=== PATIENT | female | born 1960 | race Caucasian/White ===

== ENCOUNTER → 2020-11-03 09:10 | Outpatient (BNVA) | payer MEDICARE, MEDICAID, SELFPAY | PROVIDERS: PCP Internal Medicine; Visit Provider Hospitalist | DX: J41.0 Simple chronic bronchitis (principal); R91.8 Other nonspecific abnormal finding of lung field | CPT/HCPCS: 99202 ==

== ENCOUNTER 2020-11-28 09:48 | Outpatient (REF) | payer MEDICARE, MEDICAID, SELFPAY ==
--- NOTE | ~2020-11-28 | CT_ITS ---
EXAMINATION: CT CHEST WITHOUT CONTRAST CLINICAL INFORMATION: Simple chronic bronchitis. COMPARISON: Chest radiograph done on 07/03/2014. TECHNIQUE: Multidetector volumetric CT imaging of the chest was done. Axial MIP volume rendering provided. Sagittal and coronal reformatted images were obtained. This CT examination was performed using dose optimization techniques as appropriate, variously including the following: *Automated exposure control *Adjustment of mA and/or kV according to patient size (this includes techniques or standardized protocols for targeted exams where dose is matched to indication/reason for exam; i.e. extremities or head) *Use of iterative reconstruction technique DLP: 89.5 mGy-cm FINDINGS: SPIRAL TUBE WINDER: Unremarkable. LUNGS: Peripheral/subpleural peribronchiolar nodular airspace disease is noted at the anterior inferior aspect of the anterior segment of right upper lobe of the lung abutting the right minor fissure (65:6), consistent with pneumonia. There is a sub-5 mm noncalcified nodule identified within the right lower lobe posterolaterally (413:7). An additional smaller 1 to 2 mm noncalcified nodule is also noted adjacent to the sub-5 mm nodules also within the right lower lobe (412:7). Tiny 2 to 3 mm noncalcified nodule is noted at left lower lobe (366:7). Linear pleural parenchymal airspace disease is noted along the anterior inferior outer aspect of the right middle lobe (401:7), most consistent with pleuroparenchymal scar or atelectasis. The tracheobronchial tree is patent. Presumed pleural parenchymal scar related changes are noted at both lung apices. MEDIASTINUM: The mediastinum is normal. PLEURA: There is no pleural effusion. No pleural mass or thickening. AXILLA: No lymphadenopathy. CHEST WALL: Bilateral breast implants are present, appear intact. UPPER ABDOMEN: Remarkable for circumscribed hypodense lesion seen along the subdiaphragmatic surface of the left lobe measures approximately 2.0 cm at its maximum dimension with Hounsfield value of, consistent with simple-appearing cyst (46:3). OSSEOUS STRUCTURES: Unremarkable. CT/CT chest wo con IMPRESSION: 1. Abnormal study. Peribronchiolar nodular airspace opacity is noted along the subpleural, peripheral aspect of the anterior inferior part of the anterior segment of right upper lobar lung abutting the right minor fissure, consistent with pneumonia. Additional scattered multiple sub-5 mm indeterminate noncalcified lung nodules are also noted bilaterally. 2. No CT evidence of any pathologically enlarged mediastinal or hilar lymphadenopathy or pleural effusion or adrenal mass. 3. 2 cm cyst involving the left lobe of the liver. The current study was read without the benefit of direct visual comparison with prior studies. Subtle findings can only be apparent when comparison is made with prior studies. If prior studies (CT of the chest) become available, following comparison, an addendum will be dictated.
== END 2020-11-28 09:49 | disposition home or self-care (01) ==
LOC: HO.CT 09:48
PROVIDERS: PCP Internal Medicine; Visit Provider Hospitalist
DX: J41.0 Simple chronic bronchitis (principal); R91.8 Other nonspecific abnormal finding of lung field
CPT/HCPCS: 71250

== ENCOUNTER 2020-12-02 12:54 | Outpatient (REF) | payer MEDICARE, MEDICAID, SELFPAY ==
--- NOTE | 2020-12-02 17:29 | PFT_ITS ---
FLOWS: FEV1 90% predicted at 2.27 L. FVC 78% of predicted at 2.55 L. FEV1 to FVC ratio of 0.89. No bronchodilator response except in small to medium airways. LUNG VOLUMES: Total lung capacity 84% of predicted at 4.16 L. Residual volume 88% of predicted at 1.30 L. Slow vital capacity 85% of predicted at 2.56 L. Expiratory reserve volume 95% of predicted at 0.82 L. Diffusion capacity is normal. IMPRESSION: No obstructive or restrictive ventilatory defect. No bronchodilator response except in small to medium airways. Alfredo Gallardo MD AP/MODL / [id number]
== END 2020-12-02 12:55 | disposition home or self-care (01) ==
LOC: HO.RESP 12:54
PROVIDERS: PCP Internal Medicine; Visit Provider Hospitalist
DX: R91.8 Other nonspecific abnormal finding of lung field (principal)
CPT/HCPCS: 94060; 94727; 94729

== ENCOUNTER 2020-12-11 06:24 | Day surgery (SDC) | payer MEDICARE, MEDICAID, SELFPAY ==
--- NOTE | 2020-12-10 12:00 | HO.ANESPROP2 ---
Documented by User: Cyn Mayer NP 12/10/20 12:01 HPI - Anesthesia Eval Consult details Narrative: 60yo F for Bronchoscopy Fiberoptic PMFSH Active Problems Active Problems: All Active Problems (Updated 12/10/20 @ 08:23 by Nora Smith RN) Chronic bronchitis (Acute) Pulmonary nodules (Acute) Past Medical History Medical History Chronic bronchitis Depression IBS (irritable bowel syndrome) Pleurisy Pulmonary nodules Surgical History Surgical History (Updated 12/11/20 @ 06:55 by Bebe Heath RN) History of breast augmentation History of cervical spinal surgery Hx of appendectomy Previous section S/P removal of right ovary Social History Social History (Updated 12/10/20 @ 08:23 by Nora Smith RN) Patient Tobacco Use Status: Never used Tobacco Use of substances other than those prescribed or required for medical reasons: No Are you DNR?: No Advance Directives: No Advance Directives Information Provided: Yes Meds Allergies Allergy/AdvReac Type Severity Reaction Status Date / Time No Known Allergies Allergy Unverified 11/03/20 09:23 Home Medications Medication Instructions Recorded Confirmed Last Taken Type diazepam 5 mg tablet 2.5 - 5 mg PO DAILY PRN 11/03/20 Unknown History duloxetine 20 mg capsule,delayed 20 mg PO DAILY 11/03/20 Unknown History release duloxetine 60 mg capsule,delayed 60 mg PO DAILY 11/03/20 12/11/20 05:30 History release simvastatin 10 mg tablet 5 mg PO BEDTIME 11/03/20 Unknown History valacyclovir 500 mg tablet 500 mg PO DAILY 11/03/20 12/11/20 05:30 History Exam Exam Date and Time: December 10, 2020 1200 Assessment and Plan Assessment Anesthesia Assessment: Chart Reviewed Documented by User: Ehsan Julian MD 12/11/20 07:05 PMFSH Past Medical History Medical History Chronic bronchitis Depression IBS (irritable bowel syndrome) Pleurisy Pulmonary nodules Surgical History Surgical History (Updated 12/11/20 @ 06:55 by Bebe Heath RN) History of breast augmentation History of cervical spinal surgery Hx of appendectomy Previous section S/P removal of right ovary Social History Social History (Updated 12/10/20 @ 08:23 by Nora Smith RN) Patient Tobacco Use Status: Never used Tobacco Use of substances other than those prescribed or required for medical reasons: No Are you DNR?: No Advance Directives: No Advance Directives Information Provided: Yes Meds Allergies Allergy/AdvReac Type Severity Reaction Status Date / Time No Known Allergies Allergy Unverified 11/03/20 09:23 Home Medications Medication Instructions Recorded Confirmed Last Taken Type diazepam 5 mg tablet 2.5 - 5 mg PO DAILY PRN 11/03/20 Unknown History duloxetine 20 mg capsule,delayed 20 mg PO DAILY 11/03/20 Unknown History release duloxetine 60 mg capsule,delayed 60 mg PO DAILY 11/03/20 12/11/20 05:30 History release simvastatin 10 mg tablet 5 mg PO BEDTIME 11/03/20 Unknown History valacyclovir 500 mg tablet 500 mg PO DAILY 11/03/20 12/11/20 05:30 History Exam Airway Mallampati Class: II TM Dist: >3cm Neck ROM: Full
[2020-12-11] VITALS (9 sets, daily range): BP systolic 129–155; BP diastolic 70–102; PULSE 72–98; RESP 16–20; TEMP 36.1–36.7; O2SAT 97–100; BMI 20.9
[2020-12-11] MEDS: Scopolamine 1.5 MG PATCH.TD.3 TRANSDERMA (07:11)
[2020-12-11] MEDS: Lactated Ringers 1,000 ML 100 ML IVCONT (07:25)
--- NOTE | 2020-12-11 08:02 | MHC.SHP ---
Pre-Procedural Eval Section A Date of Service: 12/11/20 The patient is an INPATIENT: No Changes since office visit: No Cold of Flu in the past 2 weeks, No New Medical Problems, No Changes in Medication and No Patient answered all questions The History & Physical has been completed within 30 days and I have reviewed it.: Yes Section B Chief Complaint: solitary pulmonary nodule Allergies: Allergies Allergy/AdvReac Type Severity Reaction Status Date / Time No Known Allergies Allergy Unverified 11/03/20 09:23 Plan I have reviewed the history and physical and performed a pertinent physical examination on my patient. No changes have occurred unless specified.
[2020-12-11] MEDS: ondansetron HCL 4 MG/2 ML VIAL IVPUSH (08:47)
[2020-12-11 12:19] LABS: Lymphocytes Bronchial 6 %; Monocytes Bronchial 1 %; Neutrophils Bronchial 5 %; RBC Bronchial Washing 0 MM*3; WBC Bronchial Washing 22 MM*3
[2020-12-11 12:20] LABS: Other Bronchial 88 %
--- NOTE | 2020-12-17 20:26 | OP_ITS ---
SURGEON: Scott Santana MD INDICATIONS: Pulmonary nodules and question pneumonia. PREOPERATIVE DIAGNOSIS: POSTOPERATIVE DIAGNOSIS: Pulmonary nodules. No evidence of any active pneumonia. PROCEDURE PERFORMED: ESTIMATED BLOOD LOSS: COMPLICATIONS: ANESTHESIA: The patient was under general anesthesia throughout the procedure. ASSISTANTS: SPECIMENS: DESCRIPTION OF PROCEDURE: After the patient was adequately sedated, the flexible digital bronchoscope was inserted over the ET tube to the level of the trachea. Tracheal mucosa appeared normal. After instilling lidocaine, the bronchoscope was then navigated to the entire tracheobronchial tree that was examined to the subsegmental level. No evidence of any endobronchial lesions or masses. The patient did have some evidence of chronic airway changes, but without any significant secretions was appreciated. The bronchoscope was navigated to the anterior segment of the right upper lobe, where BAL was done with 50 mL of normal saline, recovering back around 30 mL of clear return. No significant mucus plugs appreciated. The specimen was sent for cell count and also microbiology. Bronchial washings were also collected bilaterally. A micro brush was introduced into the right upper lobe as well and specimens were sent for microbiology. The patient tolerated the procedure well. At the end of the procedure, the ET tube was removed and I was able to visualize the vocal cords and larynx, which appeared to be within normal limits, some mild degree of trauma due to the actual intubation, but otherwise no other evidence of any abnormalities. The bronchoscope was then removed. The total endoscopic time approximately 12 minutes. The patient tolerated the procedure well. Vital signs were stable throughout the procedure. INTERPRETATION: 1. BAL from the right upper lobe. 2. Bronchial washings bilaterally. 3. Brushings from the right upper lobe and no apparent complications. MD JAMES Stover/MANUELA / [id number]
== END 2020-12-11 10:45 | disposition home or self-care (01) ==
PROVIDERS: PCP Internal Medicine; Visit Provider Hospitalist
PROC: 0BJ08ZZ Inspection of Tracheobronchial Tree, Via Natural or Artificial Opening Endoscopic (ICD-10-PCS; CPT 31622; principal; 2020-12-11 08:00)
DX: R91.1 Solitary pulmonary nodule (principal); J41.0 Simple chronic bronchitis
CPT/HCPCS: 31624; 31623; 87071; 87102; 87116; 87205; 88112; 88305; 89051; J0171; J1100; J2250; J2405; J2550; J3010

== ENCOUNTER → 2020-12-29 09:59 | Outpatient (BNVA) | payer MEDICARE, MEDICAID, SELFPAY | PROVIDERS: PCP Internal Medicine; Visit Provider Hospitalist | DX: J41.0 Simple chronic bronchitis (principal); J18.9 Pneumonia, unspecified organism; R91.8 Other nonspecific abnormal finding of lung field; Z23 Encounter for immunization | CPT/HCPCS: 90471; 90686; 99212 ==

== ENCOUNTER 2021-05-04 09:48 | Outpatient (REF) | payer MEDICARE, MEDICAID, SELFPAY ==
--- NOTE | ~2021-05-04 | CT_ITS ---
EXAMINATION: CT CHEST WITHOUT CONTRAST CLINICAL INFORMATION: 5 mm multiple non-calcified lung nodules bilaterally. COMPARISON: None TECHNIQUE: Multidetector volumetric CT imaging of the chest was done. Axial MIP volume rendering provided. Sagittal and coronal reformatted images were obtained. This CT examination was performed using dose optimization techniques as appropriate, variously including the following: *Automated exposure control *Adjustment of mA and/or kV according to patient size (this includes techniques or standardized protocols for targeted exams where dose is matched to indication/reason for exam; i.e. extremities or head) *Use of iterative reconstruction technique DLP: 99 mGy-cm FINDINGS: NAVY FIGHTER PILOT: Unremarkable. LUNGS: The lungs are well-expanded with a patchy ill-defined opacity in the right upper lobe anterior segment, stable. There is a small 6 mm nodule in the right minor fissure. The previously visualized 2 nodules in the right lower lobe are not visualized at this time. There are linear atelectatic changes in the lateral segment of the right middle lobe axial image 390/7. No additional atelectatic changes are seen. There are no new nodules. MEDIASTINUM: The thyroid lobes are symmetric and normal. The central trachea and the bronchi are widely patent. No abnormally sized mediastinal or hilar lymph nodes are seen. Heart size of the great vessels are of normal caliber. No pericardial effusion is seen. PLEURA: There is no pleural effusion. No pleural mass or thickening. AXILLA: There are small shotty lymph nodes seen in the axilla with a left axillary lymph node measuring 9 mm on axial image 15/3. There are bilateral augmented breasts. The chest wall is otherwise unremarkable. UPPER ABDOMEN: There is a small left hepatic lobe cyst measuring 1.8 cm. Rest of the visualized liver, spleen, bilateral adrenal glands and gallbladder appear unremarkable. OSSEOUS STRUCTURES: No lytic or sclerotic process is seen. CT/CT chest wo con IMPRESSION: The ill-defined opacity in the right upper lobe anterior segment is visualized. However, it is slightly improved in density and size from the previous study. The 2 nodules described in the right lower lobe are not seen at this time. There is a right minor fissure lymph node present. There is patchy linear atelectasis in the right middle lobe, stable. Fleischner guidelines were followed.
== END 2021-05-04 09:49 | disposition home or self-care (01) ==
LOC: HO.CT 09:48
PROVIDERS: PCP Internal Medicine; Visit Provider Hospitalist
DX: R91.8 Other nonspecific abnormal finding of lung field (principal); J18.9 Pneumonia, unspecified organism
CPT/HCPCS: 71250

== ENCOUNTER → 2021-06-08 09:51 | Outpatient (BNVA) | payer MEDICARE, MEDICAID, SELFPAY | PROVIDERS: PCP Internal Medicine; Visit Provider Hospitalist | DX: R91.8 Other nonspecific abnormal finding of lung field (principal); J41.0 Simple chronic bronchitis; J18.9 Pneumonia, unspecified organism; Z79.899 Other long term (current) drug therapy | CPT/HCPCS: 99212 ==

== ENCOUNTER 2021-10-19 12:37 | Outpatient (REF) | payer MEDICARE, MEDICAID, SELFPAY ==
--- NOTE | ~2021-10-19 | CT_ITS ---
EXAMINATION: CT CHEST WITHOUT CONTRAST CLINICAL INFORMATION: Pneumonia COMPARISON: Previous chest CT scans most recent April 2021 TECHNIQUE: Multidetector volumetric CT imaging of the chest was done. Axial MIP volume rendering provided. Sagittal and coronal reformatted images were obtained. This CT examination was performed using dose optimization techniques as appropriate, variously including the following: *Automated exposure control *Adjustment of mA and/or kV according to patient size (this includes techniques or standardized protocols for targeted exams where dose is matched to indication/reason for exam; i.e. extremities or head) *Use of iterative reconstruction technique DLP: 173 mGy-cm FINDINGS: UNIT LEADER: LUNGS: There is atelectasis or small infiltrates in the anterior segment of the right upper lobe and medial segment of the right middle lobe that are stable. There is a triangular-shaped peripheral or subpleural 6 mm nodule in the right middle lobe adjacent to the minor fissure axial image 257 that is stable and likely represents a small subpleural lymph node. There is a 2 x 6 mm peripheral or subpleural left lower lobe nodule axial image 262 series 5 probably representing a small subpleural lymph node as well scattered small pulmonary nodules that are stable probably related to bronchial soft tissue opacification in the left lower lobe measuring 2 mm axial image 298 series 5 and in the right middle lobe axial image 288 series 5 and right lower lobe axial image 341 series 5. No new pulmonary nodule. No endobronchial or endotracheal lesion. MEDIASTINUM: The mediastinum is normal. PLEURA: There is no pleural effusion. No pleural mass or thickening. AXILLA: No chest wall mass or enlarged axillary lymph nodes. Bilateral breast implants. UPPER ABDOMEN: Stable liver cyst. OSSEOUS STRUCTURES: There are degenerative changes of the spine. CT/CT chest wo IV con IMPRESSION: Stable atelectasis or small infiltrate in the anterior segment of the right upper lobe and medial segment of the right middle lobe. Stable small pulmonary nodules. Fleischner guidelines were followed.
== END 2021-10-19 12:38 | disposition home or self-care (01) ==
LOC: HO.CT 12:37
PROVIDERS: Visit Provider Hospitalist
DX: J18.9 Pneumonia, unspecified organism (principal); R91.8 Other nonspecific abnormal finding of lung field
CPT/HCPCS: 71250

== ENCOUNTER → 2021-12-04 09:22 | Outpatient (BNVA) | payer MEDICARE, MEDICAID, SELFPAY | PROVIDERS: PCP Internal Medicine; Visit Provider Hospitalist | DX: R91.8 Other nonspecific abnormal finding of lung field (principal); J41.0 Simple chronic bronchitis; J18.9 Pneumonia, unspecified organism | CPT/HCPCS: 99212 ==

== ENCOUNTER → 2022-07-21 09:06 | Outpatient (BNVA) | payer MEDICARE, MEDICAID, SELFPAY | PROVIDERS: PCP Internal Medicine; Visit Provider Hospitalist | DX: J41.0 Simple chronic bronchitis (principal); J18.9 Pneumonia, unspecified organism; R91.8 Other nonspecific abnormal finding of lung field | CPT/HCPCS: 99212 ==

== ENCOUNTER 2022-10-12 09:41 | Outpatient (REF) | payer MEDICARE, MEDICAID, SELFPAY ==
--- NOTE | ~2022-10-12 | CT_ITS ---
EXAMINATION: CT CHEST WITHOUT CONTRAST CLINICAL INFORMATION: Prior abnormal imaging. COMPARISON: 10/19/2021 and 04/14/2021 and 11/28/2020 TECHNIQUE: Multidetector volumetric CT imaging of the chest was done. Axial MIP volume rendering provided. Sagittal and coronal reformatted images were obtained. This CT examination was performed using dose optimization techniques as appropriate, variously including the following: *Automated exposure control *Adjustment of mA and/or kV according to patient size (this includes techniques or standardized protocols for targeted exams where dose is matched to indication/reason for exam; i.e. extremities or head) *Use of iterative reconstruction technique DLP: 201 mGy-cm FINDINGS: LUNGS: There are nodular densities in the anterior right upper lobe abutting the right minor fissure on image 212 and in the anterior right middle lobe on image 250. The consolidation has become progressively denser and more solid when compared to the prior examinations. 6 mm nodule along the right minor fissure is stable on image 219. No new or enlarging pulmonary nodules. Central airways are patent. MEDIASTINUM: Imaged thyroid gland is unremarkable. No bulky axillary, hilar or mediastinal lymphadenopathy. Great vessels are of normal caliber. Heart size is normal. No pericardial effusion. CORONARY ARTERY CALCIFICATION: None visualized on this study. PLEURA: No pleural effusion. CHEST WALL: Bilateral breast implants. UPPER ABDOMEN: Small hiatal hernia. Scattered hepatic cysts. No adrenal mass. OSSEOUS STRUCTURES: No destructive bone lesions. CT/CT chest wo IV con IMPRESSION: Increasingly solid and denser consolidations in the anterior right upper lobe and anterior right middle lobe compared to prior exams dating back to 2020. PET/CT should be considered for further characterization.
== END 2022-10-12 09:42 | disposition home or self-care (01) ==
LOC: HO.CT 09:41
PROVIDERS: PCP Internal Medicine; Visit Provider Hospitalist
DX: R91.8 Other nonspecific abnormal finding of lung field (principal)
CPT/HCPCS: 71250

== ENCOUNTER 2022-10-22 08:54 | Outpatient (AMB) | payer MEDICARE, MEDICAID, SELFPAY ==
[2022-10-22 09:08] VITALS: BP 120/74; PULSE 91; O2SAT 97; BMI 25.5
--- NOTE | 2022-10-22 09:08 | A.OFFVIS_ITS ---
Intake Vital Signs 10/22/22 09:08 Height 5 ft 3 in Weight 144 lb BMI 25.5 BP 120/74 Blood Pressure Location Lt brachial Position Sitting Pulse 91 Pulse Oximetry (%) 97 Intake Visit Reasons: Abnormal CT scan Allergies gabapentin Adverse Reaction (Verified 10/22/22 09:21) Confusion Medication List - Last Reconciled 10/22/22 by Sen Castellano MD clonazepam (Klonopin) 0.5 mg PO DAILY duloxetine 0 mg PO olanzapine (Zyprexa) 20 mg PO DAILY olanzapine-samidorphan 10-10 mg (Lybalvi) 1 tab PO DAILY rosuvastatin 5 mg PO DAILY valacyclovir 250 mg PO DAILY HPI Abnormal CT scan HPI Details 62-year-old woman nonsmoker never smoker who has been followed for some pulmonary nodule/consolidation in the right upper lobe and right middle lobe with serial CT scans. I reviewed CT scans from October of 2021, April of 2021, and most recently 10/12/2022. Viewing the serial CT scans there is been progressively increasing solid and density to these mixed nodules in the anterior right upper lobe and anterior right middle lobe. There is no mediastinal lymphadenopathy and no pleural fluid. She did have a PET scan and we reviewed it together at [facility] which shows mild uptake in these areas without increased uptake elsewhere in the chest or outside of the chest. She reports feeling generally good health denies unintentional weight loss decreased appetite fevers chills or soaking sweats. She denies chest pain shortness of breath cough or hemoptysis. She denies any new neurologic symptoms. Other than above, 12 point review of systems was done and documented separately in the office chart with detailed social and family history. [facility] Medical History Pneumonitis Pleurisy Depression IBS (irritable bowel syndrome) Chronic bronchitis Pulmonary nodules Surgical History History of right oophorectomy History of History of appendectomy History of bronchoscopy History of breast augmentation History of cervical spinal surgery Social History Patient Tobacco Use Status: Never used Tobacco Physical Exam Vital Signs: Last Vital Signs Pulse 91 10/22/22 09:08 BP 120/74 10/22/22 09:08 Pulse Ox 97 10/22/22 09:08 BMI result Body Mass Index 25.5 General: No acute distress HEENT: Moist mucous membranes, normocephalic, pupils equal round and reactive to light. Neck: No thyromegaly, supple, no JVD Lymph: No cervical, supraclavicular, or other lymphadenopathy Chest: No chest wall abnormalities or deformities Heart: Regular rate and rhythm Lungs: Clear to auscultation bilaterally Abdomen: Soft, nontender, normal bowel sounds Extremities: No edema, cyanosis, or clubbing. Full range of motion Neuro: Grossly intact, alert and oriented x3, and nonfocal Skin: Warm and dry no rashes Affect: Normal Assessment & Plan Assessment & Plan (1) Pulmonary nodules: Code(s): R91.8 - Other nonspecific abnormal finding of lung field Plan: 62-year-old woman nonsmoker never smoker with progressively increasing pulmonary nodularity both in size, density, and solid component the right upper lobe anteriorly in the right middle lobe anteriorly. Had a discussion with her about the findings from her serial CT scans as described in the HPI. We also discussed pulmonary nodules in general and how their size, shape, and growth over time could affect her level of suspicion for malignancy. I do think these areas have somewhat of an inflammatory type appearance but there progressively increasing size and density is a concerning feature. I did also discuss the diagnosis, staging, and treatment of lung cancer which he seemed understand. I did discuss with her 3 options including continued observation versus needle biopsy versus surgical wedge resection possible lobectomy if they turner and former automatic to be malignancy. After discussing the risks and benefits of each of these options she decided to move forward with the surgical option. With that in mind, will plan on doing a Davinci right upper lobe and middle lobe wedge resection with possible lobectomy after November 21 as she is going on vacation until then. She will need pulmonary function testing prior to that which will be set up today. Orders: Orders PFT pulmonary function test Today R91.8 - Other nonspecific abnormal finding of lung field Coding Level of Care Code New Pt Level 5 (02263) Diagnoses Pulmonary nodules R91.8 Time Spent (min) 65
== END 2022-10-22 09:41 | disposition home or self-care (01) ==
PROVIDERS: PCP Internal Medicine; Visit Provider Surgery
DX: R91.8 Other nonspecific abnormal finding of lung field (principal)

== ENCOUNTER → 2022-10-22 08:54 | Outpatient (BNVA) | payer MEDICARE, MEDICAID, SELFPAY | PROVIDERS: PCP Internal Medicine; Visit Provider Surgery | DX: R91.8 Other nonspecific abnormal finding of lung field (principal) | CPT/HCPCS: 99202 ==

== ENCOUNTER 2022-11-08 10:19 | Outpatient (REF) | payer MEDICARE, MEDICAID, SELFPAY ==
--- NOTE | 2022-11-08 10:58 | PFT_ITS ---
INDICATION: Preop. SPIROMETRY: FEV1 to FVC 86% with an FEV1 of 1.91 L, which is 77% predicted and FVC of 2.21 L, which is 69% predicted. Maximum voluntary ventilation 74% predicted. LUNG VOLUMES: Total lung capacity 67% predicted with an expiratory reserve volume of 37% predicted. DIFFUSION CAPACITY: DLCO of 71% predicted. COMPARISONS: None. INTERPRETATION: No obstructive ventilatory defects. Bronchodilators could not be measured. There is a mild decrease in the maximum voluntary ventilation secondary to likely deconditioning, although cannot rule out neuromuscular condition. Lung volumes with a mild to moderate restrictive ventilatory defect consistent with mild restrictive lung disease. Need to consider underlying neuromuscular conditions and/or parenchymal lung conditions. There is a mild diffusion impairment. Clinical correlation warranted. Scott Santana MD MR/MODAnitha / [id number]
== END 2022-11-08 10:20 | disposition home or self-care (01) ==
LOC: HO.RESP 10:19
PROVIDERS: PCP Internal Medicine; Visit Provider Surgery
DX: R91.8 Other nonspecific abnormal finding of lung field (principal)
CPT/HCPCS: 94010; 94727; 94729

== ENCOUNTER → 2022-11-08 10:58 | Outpatient (BNV) | payer MEDICARE, MEDICAID, SELFPAY | PROVIDERS: PCP Internal Medicine; Visit Provider Hospitalist | DX: Z01.818 Encounter for other preprocedural examination (principal) | CPT/HCPCS: 94060; 94727; 94729 ==